=== PATIENT | male | born 1995 | race Hispanic/Latino ===

== ENCOUNTER 2019-01-23 07:06 | Emergency (ER) | payer OTHER ==
[2019-01-23 07:07] VITALS: BMI 26.6
[2019-01-23 07:17] VITALS: RESP 20
[2019-01-23] MEDS ORDERED: Sodium Chloride 0.9% 1,000 ML IV ONE (07:33)
[2019-01-23] MEDS ORDERED: Sodium Chloride 0.9% 1,000 ML ONE (07:53)
[2019-01-23 08:03] LABS: BASO # 0.1 K/uL (0.0-0.2); EOS # 0.2 K/uL (0.0-0.7); HEMOGLOBIN 15.2 g/dL (12.0-18.0); LYMPH # 2.2 K/uL (1.0-4.3); LYMPH % 26.2 % (20.0-40.0); MEAN CELL VOLUME 81.9 fL (80.0-94.0); MEAN CORPUSCULAR HEMOGLOBIN 28.1 pg (27.0-31.0); MEAN CORPUSCULAR HGB CONC 34.3 g/dL (33.0-37.0); MEAN PLATELET VOLUME 9.5 fL (7.2-11.7); MONO # 0.7 K/uL (0.0-0.8); MONO % 7.9 % (0.0-10.0); NEUT # 5.2 K/uL (1.8-7.0); NEUT % 62.9 % (50.0-75.0); NRBC % 0.1 % (0.0-2.0); RBC 5.4 Mil/uL (4.40-5.90); RED CELL DISTRIBUTION WIDTH 13.9 % (11.5-14.5); WHITE BLOOD COUNT 8.3 K/uL (4.8-10.8)
[2019-01-23 08:29] LABS: ALB/GLOB RATIO 1.5 (1.0-2.1); ALBUMIN 4.5 g/dL (3.5-5.0); ALT/SGPT 41 U/L (21-72); AST/SGOT 34 U/L (17-59); BLOOD UREA NITROGEN 16 mg/dL (9-20); CALCIUM 9.3 mg/dl (8.6-10.4); GFR NON-AFRICAN AMERICAN > 60; LIPASE 97 U/L (23-300)
[2019-01-23 08:48] VITALS: BP 114/71; PULSE 64; TEMP 98.4; O2SAT 98
--- NOTE | 2019-01-23 08:53 | C.PDOC ---
History Of Present Illness 23 y/o male comes in to ED complaining of intermittent abdominal pain for the past week. States he would get this pain when he eats. Patient denies nausea, vomiting, diarrhea, blood in stool, or change in diet. States he hasnt been taking any medications for it. Patient has not followed up with a doctor. Time Seen by Provider: 01/23/19 07:20 Chief Complaint (Nursing): Abdominal Pain History Per: Patient History/Exam Limitations: no limitations Onset/Duration Of Symptoms: Days Current Symptoms Are (Timing): Still Present Past Medical History Reviewed: Historical Data, Nursing Documentation, Vital Signs Vital Signs: Last Vital Signs Temp 98.4 F 01/23/19 08:46 Pulse 64 01/23/19 08:46 Resp 20 01/23/19 08:46 BP 114/71 01/23/19 08:46 Pulse Ox 98 01/23/19 08:46 - Medical History PMH: Denies: Depression Family History: States: No Known Family Hx - Social History Hx Tobacco Use: No Hx Alcohol Use: Yes Hx Substance Use: No - Immunization History Hx Tetanus Toxoid Vaccination: No Hx Influenza Vaccination: No Hx Pneumococcal Vaccination: No Review Of Systems Except As Marked, All Systems Reviewed And Found Negative. Constitutional: Negative for: Fever, Chills Gastrointestinal: Positive for: Abdominal Pain. Negative for: Nausea, Vomiting, Diarrhea, Hematochezia Musculoskeletal: Negative for: Back Pain Physical Exam - Physical Exam Appears: Non-toxic, No Acute Distress Skin: Warm, Dry Head: Atraumatic, Normacephalic Eye(s): bilateral: Normal Inspection Oral Mucosa: Moist Neck: Supple Cardiovascular: Rhythm Regular, No Murmur Respiratory: Normal Breath Sounds, No Rales, No Rhonchi, No Wheezing Gastrointestinal/Abdominal: Soft, No Tenderness, No Guarding, No Rebound Extremity: Bilateral: Atraumatic, Normal ROM Neurological/Psych: Oriented x3, Normal Speech ED Course And Treatment - Laboratory Results Result Diagrams: 01/23/19 08:00 01/23/19 08:00 Lab Results: Total Bilirubin 0.5 mg/dL (0.2-1.3) 01/23/19 08:00 AST 34 U/L (17-59) 01/23/19 08:00 ALT 41 U/L (21-72) 01/23/19 08:00 Alkaline Phosphatase 103 U/L (38-126) 01/23/19 08:00 Total Protein 7.5 g/dL (6.3-8.3) 01/23/19 08:00 Albumin 4.5 g/dL (3.5-5.0) 01/23/19 08:00 Globulin 3.0 gm/dL (2.2-3.9) 01/23/19 08:00 Albumin/Globulin Ratio 1.5 (1.0-2.1) 01/23/19 08:00 Lipase 97 U/L (23-300) 01/23/19 08:00 O2 Sat by Pulse Oximetry: 98 (RA) Pulse Ox Interpretation: Normal Medical Decision Making Medical Decision Making: Plan: --Labs --Pepcid 20 mg IVP --IV fluids 1L Patient will follow up with clinic. Disposition - Disposition Referrals: [facility] [Outside] [facility] [Outside] Disposition: HOME/ ROUTINE Disposition Time: 08:35 Condition: IMPROVED Additional Instructions: JOSE JUAN MAYEN, thank you for letting us take care of you today. The emergency medical care you received today was directed at your acute symptoms. If you were prescribed any medication, please fill it and take as directed. It may take several days for your symptoms to resolve. Return to the Emergency Department if your symptoms worsen, do not improve, or if you have any other problems. Please contact your doctor or call one of the physicians/clinics you have been referred to that are listed on the Patient Visit Information form that is included in your discharge packet. Bring any paperwork you were given at discharge with you along with any medications you are taking to your follow up visit. Our treatment cannot replace ongoing medical care by a primary care provider outside of the emergency department. Thank you for allowing the [facility] team to be part of your care today. Follow up with the clinic in 1 week for re-evaluation and further management. Prescriptions: Famotidine [Pepcid] 20 mg PO BID #14 tab Instructions: Gastritis (DC), Ulcer and Gastritis Diet Forms: [facility] (Y[place]i) - Clinical Impression Clinical Impression: Gastritis - Scribe Statement The provider has reviewed the documentation as recorded by the Pam Tomlinson Provider Attestation: All medical record entries made by the Farrahibbijal were at my direction and personally dictated by me. I have reviewed the chart and agree that the record accurately reflects my personal performance of the history, physical exam, medical decision making, and the department course for this patient. I have also personally directed, reviewed, and agree with the discharge instructions and disposition.
== END 2019-01-23 09:06 | disposition home or self-care (01) ==
LOC: EDBD 07:06 → C.ER 07:06
DX: K29.70 Gastritis, unspecified, without bleeding (principal)
CPT/HCPCS: 80053; 83690; 85025; 96361; 96374; 99285; J7030